=== PATIENT | male | born 1995 | race Two or more races ===

== ENCOUNTER 2019-02-13 22:26 | Emergency (ER) | payer BC ==
--- NOTE | 2019-02-14 01:35 | ED ---
Laceration/Wound HPI - HPI Summary HPI Summary: Patient complains of laceration to dorsal surface of left hand after he caught it on a piece of metal. Tetanus status up-to-date. Denies any other symptoms, pain or injury. - History of Current Complaint Stated Complaint: LT HAND LAC PER PT Time Seen by Provider: 02/14/19 00:57 Hx Obtained From: Patient Mechanism of Injury: Sharp/Blunt Trauma Onset Severity: Mild Current Severity: None Pain Intensity: 0 Pain Scale Used: 0-10 Numeric Associated Signs & Symptoms: Negative - Allergy/Home Medications Allergies/Adverse Reactions: Allergies Allergy/AdvReac Type Severity Reaction Status Date / Time No Known Allergies Allergy Verified 02/13/19 22:38 PMH/Surg Hx/FS Hx/Imm Hx Endocrine/Hematology History: Denies: Hx Anticoagulant Therapy Cardiovascular History: Denies: Hx Pacemaker/ICD History: Denies: Hx Dialysis Sensory History: Denies: Hx Eye Prosthesis Opthamlomology History: Denies: Hx Legally Blind EENT History: Denies: Hx Deafness Neurological History: Denies: Hx Dementia - Immunization History Immunizations Up to Date: Yes Infectious Disease History: No Infectious Disease History: Denies: Traveled Outside the [place] in Last 30 Days - Family History Known Family History: Positive: Non-Contributory - Social History Alcohol Use: None Substance Use Type: Reports: None Smoking Status (MU): Never Smoked Tobacco Review of Systems Constitutional: Negative Eyes: Negative ENT: Negative Cardiovascular: Negative Respiratory: Negative Gastrointestinal: Negative Genitourinary: Negative Musculoskeletal: Negative Skin: Other Neurological: Negative Psychological: Normal All Other Systems Reviewed And Are Negative: Yes Physical Exam - Summary Physical Exam Summary: Laceration to dorsal surface of left hand just distal to left wrist. Extension of left wrist and all fingers intact. No evidence of tendon damage. Triage Information Reviewed: Yes Vital Signs On Initial Exam: Initial Vitals Temp Pulse Resp BP Pulse Ox 99.2 F 81 16 153/74 97 02/13/19 22:35 02/13/19 22:35 02/13/19 22:35 02/13/19 22:35 02/13/19 22:35 Vital Signs Reviewed: Yes Appearance: Positive: Well-Appearing Skin: Positive: Warm Head/Face: Positive: Normal Head/Face Inspection Eyes: Positive: Normal Dental: Negative: Dental Fracture @, Bleeding Neck: Positive: Supple Respiratory/Lung Sounds: Positive: Clear to Auscultation Cardiovascular: Positive: Normal Abdomen Description: Positive: Nontender Musculoskeletal: Positive: Normal Neurological: Positive: Normal Psychiatric: Positive: Normal AVPU Assessment: Alert - Genaro Coma Scale Best Eye Response: 4 - Spontaneous Best Motor Response: 6 - Obeys Commands Best Verbal Response: 5 - Oriented Coma Scale Total: 15 Procedures - Sedation Patient Received Moderate/Deep Sedation with Procedure: No - Laceration/Wound Repair 1 Location: upper extremity - dorsal right hand Description: Linear Anesthesia: Local, 1.0% Length, Depth and Shape: 3cm x 1cm Betadine Prep?: No Irrigated w/ Saline (ccs): 300 Laceration/Wound Explored: clean Debridement: minimal Number of Sutures: 5 - 4.0 ethilon Layer Closure?: No Sterile Dressing Applied?: No Diagnostics - Vital Signs Vital Signs Temp Pulse Resp BP Pulse Ox 02/13/19 22:35 99.2 F 81 16 153/74 97 - Laboratory Lab Statement: Any lab studies that have been ordered have been reviewed, and results considered in the medical decision making process. Laceration Repair Course/Dx - Course Course Of Treatment: Patient complains of laceration to dorsal surface of left hand after he caught it on a piece of metal. Tetanus status up-to-date. Denies any other symptoms, pain or injury. Vital signs within normal limits. Wound cleaned and sutured. - Clinical Impression Provider Diagnoses: Laceration Discharge ED - Sign-Out/Discharge Documenting (check all that apply): Patient Departure - Discharge Plan Condition: Stable Disposition: HOME Patient Education Materials: Care For Your Stitches (ED), Laceration (ED) Referrals: No Primary Care Phys,NOPCP [Primary Care Provider] - Additional Instructions: Sutures out in 10 days. Keep wound clean and dry. You may wash with warm running water and soap. Do not submerge wound for 10 days. Return to the ED for any worsening symptoms. - Billing Disposition and Condition Condition: STABLE Disposition: Home
[2019-02-14 01:53] VITALS: BP 129/62
== END 2019-02-14 01:51 | disposition home or self-care (01) ==
LOC: ED 22:26
DX: S61.412A Laceration without foreign body of left hand, initial encounter (principal); W26.9XXA Contact with unspecified sharp object(s), initial encounter; Y92.9 Unspecified place or not applicable
CPT/HCPCS: 12002; 99282